=== PATIENT | male | born 1965 | race Caucasian/White ===

== ENCOUNTER 2016-10-14 21:42 | Emergency (ER) | payer BC ==
[2016-10-14 21:54] VITALS: BP 136/101
--- NOTE | 2016-10-14 22:37 | EDM.PDOC ---
ED HPI GENERAL MEDICAL PROBLEM - General Chief Complaint: Laceration Stated Complaint: INJURY TO HEAD Time Seen by Provider: 10/14/16 22:17 Source of Information: Reports: Patient, RN Notes Reviewed History Limitations: Reports: No Limitations - History of Present Illness INITIAL COMMENTS - FREE TEXT/NARRATIVE: The patient states that he was working on the back end of his truck around 19: 00 tonight, when he turned his head, striking the top of his head on the truck fender. No loss of consciousness, and, in fact, the patient states that it didn' t really hurt, although it did bleed. He applied direct pressure, but it took about 2.5 hours before it stopped bleeding. When he got home, his looked at the wound and suggested that he come to the ED for evaluation. The patient is otherwise uninjured. The patient's last tetanus vaccination was in January 2009. The patient's PCP is Dr. Jane. top of head Pain Score (Numeric/FACES): 1 - Related Data Allergies Allergy/AdvReac Type Severity Reaction Status Date / Time Penicillins Allergy Rash Verified 10/14/16 21:54 Home Meds: Home Meds Levothyroxine Sodium [Synthroid] 150 mcg PO DAILY 01/28/14 [History] Past Medical History Cardiovascular History: Reports: High Cholesterol (untreated) Gastrointestinal History: Reports: GERD (untreated) Endocrine/Metabolic History: Reports: Hypothyroidism - Past Surgical History HEENT Surgical History: Reports: Tonsillectomy Musculoskeletal Surgical History: Reports: Amputation (Left foot, partial), Other (See Below) (Left second finger repair) Social & Family History - Family History Family Medical History: Noncontributory - Tobacco Use Smoking Status *Q: Never Smoker Second Hand Smoke Exposure: No - Caffeine Use Caffeine Use: Reports: Energy Drinks - Alcohol Use Alcohol Use History: No Days Per Week of Alcohol Use: 0 - Recreational Drug Use Recreational Drug Use: No - Living Situation & Occupation Living situation: Reports: , with Spouse 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) ED ROS GENERAL - Review of Systems Review Of Systems: See Below Constitutional: Reports: No Symptoms HEENT: Reports: No Symptoms Respiratory: Reports: No Symptoms Cardiovascular: Reports: No Symptoms Endocrine: Reports: No Symptoms GI/Abdominal: Reports: No Symptoms : Reports: No Symptoms Musculoskeletal: Reports: No Symptoms Skin: Reports: No Symptoms Neurological: Reports: No Symptoms Psychiatric: Reports: No Symptoms Hematologic/Lymphatic: Reports: No Symptoms Immunologic: Reports: No Symptoms ED EXAM, GENERAL - Physical Exam Exam: See Below Exam Limited By: No Limitations General Appearance: Alert, WD/WN, No Apparent Distress Eye Exam: Bilateral Eye: Normal Inspection Ears: Normal External Exam, Hearing Grossly Normal Nose: Normal Inspection, No Blood Throat/Mouth: Normal Inspection, Normal Lips, Normal Voice, No Airway Compromise Head: Normocephalic, Other (Approximately 1.8 cm jagged laceration to the top center of the patient's scalp. No associated hematoma, abrasion, or ecchymosis.) ED GENERAL MEDICAL PROCEDURES - Laceration/Wound Repair Head Lac/wound length in cm: 1.8 Appearance: Subcutaneous, Irregular, Clean Distal NVT: Neuro & Vascular Intact Anesthetic Type: Other (None) Skin Prep: Saline Exploration/Debridement/Repair: Wound Explored, in a Bloodless Field, Explored to Base, No Foreign Material Found, Wound Margins Revised Closed with: Alcon # of Sutures: 3 Sterile Dressing Applied: None Tetanus Status Addressed: Yes Complications: No Course - Vital Signs Last Recorded V/S: Last Vital Signs Temp 36.7 C 10/14/16 21:49 Pulse 97 10/14/16 21:49 Resp 18 10/14/16 21:49 BP 136/101 H 10/14/16 21:49 Pulse Ox 97 10/14/16 21:49 - Re-Assessments/Exams Free Text/Narrative Re-Assessment/Exam: 10/14/16 22:34 The patient received 3 alcon across his scalp laceration. His tetanus vaccination is up-to-date. Departure - Departure Time of Disposition: 22:34 Disposition: Home, Self-Care 01 Condition: Good Clinical Impression: Scalp laceration - Discharge Information Instructions: Laceration Care, Adult Referrals: Philly Serrano MD [Primary Care Provider] - Forms: ED Department Discharge Additional Instructions: You were seen in the emergency room after suffering a scalp laceration. You received 3 alcon to the wound. Keep the wound clean with ordinary shampoo and water. Do not put product in your hair. Take [id number] Tylenol or ibuprofen as needed for discomfort. The alcon should be ready for removal in 1 week, on 10/21/2016. This can be done at your doctor's office, the walk-in clinic, or the ER. If any other problems, please do not hesitate to return to the ER.
== END 2016-10-14 22:45 | disposition home or self-care (01) ==
LOC: JD.ED 21:42
DX: S01.01XA Laceration without foreign body of scalp, initial encounter (principal); E78.00 Pure hypercholesterolemia, unspecified; K21.9 Gastro-esophageal reflux disease without esophagitis; E03.9 Hypothyroidism, unspecified; Z98.890 Other specified postprocedural states; Z88.0 Allergy status to penicillin; Z79.899 Other long term (current) drug therapy; W22.8XXA Striking against or struck by other objects, initial encounter
CPT/HCPCS: 12001; 99282-25; 99283-25

== ENCOUNTER 2024-08-04 22:53 | Emergency (ER) | payer BC ==
[2024-08-04] MEDS: Ketorolac 60 MG/2 ML SDV IM ONE (23:30)
[2024-08-04] MEDS: Acetaminophen/HYDROcodone 325-10 MG Tab PO ONE (23:31)
[2024-08-04] MEDS ORDERED: Sodium Chloride 0.9% 10 ML Syringe FLUSH PRN (23:51)
[2024-08-05] MEDS: Iopamidol 612 MG/ML 100 ML Bottle IVPUSH ONE (00:13)
[2024-08-05 01:30] VITALS: BP 136/92; PULSE 70
== END 2024-08-05 01:27 | disposition home or self-care (01) ==
LOC: JD.ED 22:53
DX: S22.42XA Multiple fractures of ribs, left side, initial encounter for closed fracture (principal); E78.00 Pure hypercholesterolemia, unspecified; Z88.0 Allergy status to penicillin; Z79.890 Hormone replacement therapy; Z79.899 Other long term (current) drug therapy; W17.89XA Other fall from one level to another, initial encounter; Y93.89 Activity, other specified
CPT/HCPCS: 71111; 71260; 96372; 99284; A9270; J1885; Q9967